=== PATIENT | female | born 1990 | race Caucasian/White ===

== ENCOUNTER → 2022-12-29 | Day surgery (SDC) | payer OTHER ==
[2022-12-25 13:38] VITALS: BP 119/68
[2022-12-29] VITALS (7 sets, daily range): BP systolic 92–128; BP diastolic 42–69
[~2022-12-29] VITALS: Ht 157.4 cm; Wt 71.7 kg
[~2022-12-29] MED LIST: ALLERGY MEDICAT25 M1 PO; K-DUR 2020 MEQ PO; LOESTRIN 21 1-1 EACH PO; MOTRIN800 MG PO; TYLENOL325 M1 PO; ULTRAM50 MG PO; ZANTAC 150150 MG PO; ZOFRAN ODT4 MG SL
== END | disposition home or self-care (01) ==
LOC: SDC 12-25 13:15
PROVIDERS: Orthopaedic Surgery; ATTEND Obstetrics & Gynecology
DX: Z30.2 Encounter for sterilization (principal); E78.00 Pure hypercholesterolemia, unspecified; Z98.891 History of uterine scar from previous surgery; Z79.899 Other long term (current) drug therapy; Z88.8 Allergy status to other drugs, medicaments and biological substances